=== PATIENT | male | born 1990 | race Caucasian/White ===

== ENCOUNTER 2020-06-13 15:31 | Emergency (ER) | payer OTHER ==
[~2020-06-13] VITALS: Ht 190.5 cm; Wt 85.3 kg
[2020-06-13 15:31] VITALS: BP 118/65
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
--- NOTE | 2020-06-13 15:54 | NUR ---
DR CALLEJAS AT BEDSIDE
--- NOTE | 2020-06-13 16:41 | NUR ---
Patient does not wish to proceed with medical care recommended by Dr. CALLEJAS. Patient given information related to possible complications, up to and including , which could occur as a result of leaving the hospital at this time. Patient verbalizes understanding of risks involved due to leaving against medical advice. Patient has signed AMA form.
== END 2020-06-13 16:43 | disposition left against medical advice (07) ==
LOC: ER 15:34
DX: S00.83XA Contusion of other part of head, initial encounter (principal); M54.9 Dorsalgia, unspecified; V49.49XA Driver injured in collision with other motor vehicles in traffic accident, initial encounter; Y93.89 Activity, other specified; Y92.413 State road as the place of occurrence of the external cause; Y99.8 Other external cause status